=== PATIENT | male | born 1945 | race Caucasian/White ===

== ENCOUNTER 2016-12-21 08:16 | Day surgery (SDC) | payer MEDICARE, OTHER ==
[2016-12-20 14:54] LABS: BASOPHILS 0.2 %; BASOPHILS ABSOLUTE 0.02 10/3/uL (0.0-0.16); EOSINOPHILS 1.6 %; EOSINOPHILS ABSOLUTE 0.15 10/3/uL (0.0-0.53); HEMATOCRIT 38.5 % (40.0-51.0); IMMATURE GRANULOCYTES 0.8 %; IMMATURE GRANULOCYTES ABSOLUTE 0.08 10/3/uL (0.0-0.11); LYMPHOCYTES 19.3 %; LYMPHOCYTES ABSOLUTE 1.83 10/3/uL (0.67-4.30); MEAN CORPUS HGB CONC 33.8 g/dL (32.0-36.0); MEAN CORPUSCULAR HEMOGLOB 30.1 pg (26.0-34.0); MEAN CORPUSCULAR VOLUME 89.1 fL (80-100); MEAN PLATELET VOLUME 9.9 fL (9.2-13.0); MONOCYTES 8.8 %; MONOCYTES ABSOLUTE 0.83 10/3/uL (0.21-1.20); NEUTROPHILS 69.3 %; NEUTROPHILS ABSOLUTE 6.55 10/3/uL (2.02-8.40); PLATELET COUNT 277 10/3/uL (150-400); RBC DISTRIBUTION WIDTH 13.5 % (12.0-16.0); RED CELL COUNT 4.32 10/6/uL (4.7-6.1); WHITE BLOOD CELLS 9.5 10/3/uL (4.5-10.5)
[2016-12-20 14:55] LABS: MANUAL DIFF NO %
[2016-12-20 15:15] LABS: BUN (BLOOD UREA NITROGEN) 14 MG/DL (6-23); CHLORIDE, SERUM 104 MMOL/L (96-112); CO2 (CARBON DIOXIDE) 27 MMOL/L (24-34); CREATININE 0.95 MG/DL (0.70-1.30); GFR AFRICAN AMERICAN 94 ML/MIN (>=60); GFR NON AFRICAN AMERICAN 81 ML/MIN (>=60); GLUCOSE, SERUM 219 MG/DL (60-99); POTASSIUM, SERUM 4.1 MMOL/L (3.5-5.3); SODIUM, SERUM 139 MMOL/L (135-148)
--- NOTE | ~2016-12-21 | OP ---
Record Of Operation [facility] [address] [place]. [address] NAME: MUNIRA GRANADOS : 45 STATUS : [facility] UNIT#: [id number] AGE: 70 ADM/REG DATE : 12/21/16 MR#: [id number] REPORT SERV DATE: 12/22/16 DICTATED BY: JALEN WATERS DATE: 12/22/16 REPORT STATUS : Draft TRANSCRIBED BY: MODL DATE: 12/22/16 DATE OF PROCEDURE: 12/21/2016 PREOPERATIVE DIAGNOSIS: Non-Hodgkin's B-cell lymphoma with need for IV access for chemotherapy. POSTOPERATIVE DIAGNOSIS: Non-Hodgkin's B-cell lymphoma with need for IV access for chemotherapy. PROCEDURE: Placement of subcutaneous reservoir, right subclavian vein site. DESCRIPTION OF OPERATIVE PROCEDURE: The patient was brought to the operating suite, placed in supine position, underwent monitored anesthetic care. The skin of the upper chest was shaved, scrubbed, prepped, and draped in usual sterile fashion. 0.5% Marcaine with epinephrine was utilized as supplemental local anesthesia. The patient was placed in Trendelenburg position and the right subclavian vein was cannulated using the Seldinger technique. A curved, flexible tip guidewire was advanced through the needle and fluoroscopically localized at the atrial caval junction. Following this, a subcutaneous pocket was created over the right pectoral muscle again with supplemental local anesthesia. A heparin flushed saline tubing was withdrawn from the pocket site to the venipuncture site and trimmed to 20 cm. This is fixed with a locking sleeve to a previously flushed port. The port was then sutured to the right pectoral fascia at four locations using 2-0 Prolene. Then, a peel-away introducer sheath was advanced over the guidewire to its full extent and removed, and the tubing was slipped down the peel-away sheath to its full extent. The port was aspirated with good blood flow and then re-flushed with dilute heparinized saline. Fluoroscopy confirmed smooth course of the tubing with the tip at the atrial caval junction. Subcutaneous pocket was irrigated and closed in two layers with interrupted 3-0 Vicryl, running subcutaneous stitch 4-0 Vicryl for the skin at all sites. Following the procedure, the patient will undergo a bone marrow biopsy per Pathology Service. At the termination of my portion of the procedure, sponge, needle, lap, and instrument counts were correct x3. ESTIMATED BLOOD LOSS: Less than 5-10 mL. Record Of Operation [address] [place]. [address] NAME: MUNIRA GRANADOS : 45 STATUS : [facility] UNIT#: [id number] AGE: 70 ADM/REG DATE : 12/21/16 MR#: [id number] REPORT SERV DATE: 12/22/16 DICTATED BY: JALEN WATERS DATE: 12/22/16 REPORT STATUS : Draft TRANSCRIBED BY: MARLEE DATE: 12/22/16 WR/MARLEE Jalen Waters M.D. / [id number] CC: Marcelo Lees M.D.
[~2016-12-21 08:16] MED LIST: ASAB PO; CIALIS PO; COZAAR100 MG PO; FERROUS SULF325 M1 PO; GLUCOTRO10 PO; HYDROCHLOROT25 MG PO; LANTUS SC; LIPITOR80 MG PO; LOP25 PO; METFORMIN PO; MULTIPLE VIT PO; NOVOLOG SC; PRILO PO
[2016-12-21 11:43] LABS: RETICULOCYTE COUNT 1.7 % (0.5-2.9); RETICULOCYTE COUNT ABSOLUTE 74.5 10/3/uL (20.2-119.8)
== END 2016-12-21 13:32 | disposition home or self-care (01) ==
LOC: SDC 08:16
PROVIDERS: Specialist
PROC: B516YZA Fluoroscopy of Right Subclavian Vein using Other Contrast, Guidance (ICD-10-PCS; 2016-12-21)
PROC: 0JH60XZ Insertion of Tunneled Vascular Access Device into Chest Subcutaneous Tissue and Fascia, Open Approach (ICD-10-PCS; 2016-12-21)
PROC: 079T3ZX Drainage of Bone Marrow, Percutaneous Approach, Diagnostic (ICD-10-PCS; 2016-12-21)
PROC: 07DR3ZX Extraction of Iliac Bone Marrow, Percutaneous Approach, Diagnostic (ICD-10-PCS; 2016-12-21)
PROC: 05H533Z Insertion of Infusion Device into Right Subclavian Vein, Percutaneous Approach (ICD-10-PCS; principal; 2016-12-21 09:45)
DX: C85.10 Unspecified B-cell lymphoma, unspecified site (principal); I25.10 Atherosclerotic heart disease of native coronary artery without angina pectoris; I10 Essential (primary) hypertension; G47.33 Obstructive sleep apnea (adult) (pediatric); E11.9 Type 2 diabetes mellitus without complications; N52.9 Male erectile dysfunction, unspecified; K21.9 Gastro-esophageal reflux disease without esophagitis; E78.5 Hyperlipidemia, unspecified; I25.2 Old myocardial infarction; Z95.1 Presence of aortocoronary bypass graft; Z98.890 Other specified postprocedural states; Z87.891 Personal history of nicotine dependence; Z79.899 Other long term (current) drug therapy; Z79.82 Long term (current) use of aspirin; Z79.4 Long term (current) use of insulin; C83.38 Diffuse large B-cell lymphoma, lymph nodes of multiple sites; I71.2 Thoracic aortic aneurysm, without rupture; I51.89 Other ill-defined heart diseases
CPT/HCPCS: 71010; 77001; 80048; 82962; 85025; 85045; 88184; 88185; 88305; 88311; 88313; 88360; 93005; C1751; C8929; J0690; J2250; J2370; J2405; J3010; Q9957